=== PATIENT | female | born 1950 | race Caucasian/White ===

== ENCOUNTER 2024-06-14 13:10 | Inpatient (IN) ==
[2024-06-14 13:58] LABS: ABS Basophils 0.1 10^3/uL (0.0-0.1); ABS Lymphocytes 1.4 10^3/uL (1.0-4.8); ABS Monocytes 0.7 10^3/uL (0.0-0.9); ABS Neutrophils 9.4 10^3/uL (1.5-7.6); Eosinophil % 0.2 %; Hematocrit 39.2 % (35-45); Hemoglobin 13.4 g/dL (11.5-14.3); Lymphocyte % 11.9 %; Mean Corpuscular Hemoglobin 34.2 pg (27-33); Mean Corpuscular Hgb Conc 34.1 g/dL (31-36); Mean Corpuscular Volume 100.4 fL (80-97); Mean Platelet Volume 8.4 fL (7.5-11.2); Platelet Count 338 10^3/uL (150-450); Red Cell Distribution Width 14.7 % (12-17); White Blood Count 11.5 10^3/uL (3.8-11.8)
[2024-06-14] MEDS: NS 0.9% 1000 ml BAG 1,000 ML IV ONE ×2 (14:05→16:06)
[2024-06-14 14:07] LABS: Activated Partial Thrombo Time 27.2 seconds (26.0-38.0); INR 1.08 (0.83-1.13)
[2024-06-14 14:54] LABS: Albumin 4.2 g/dL (3.2-5.2); Albumin/Globulin Ratio 1.3 (1-3); Creatinine, Serum 1.76 mg/dL (0.51-0.95); Direct Bilirubin 0.1 mg/dL (0.03-0.18); Globulin 3.3 g/dL (2-4); HDL Cholesterol 64.7 mg/dL; Indirect Bilirubin 0.6 mg/dL (0.3-1.0); Potassium 4.1 mmol/L (3.5-5.0); Total Bilirubin 0.7 mg/dL (0.2-1.0); Total Protein 7.5 g/dL (6.4-8.9); eGFR CKD-EPI 30.6 (>60)
[2024-06-14 15:36] LABS: High Sensitivity Troponin 1 Hr 8 pg/mL (<15)
[2024-06-14 18:17] LABS: Urine Appearance Clear; Urine Bilirubin Negative (Negative); Urine Blood Negative (Negative); Urine Color Light-Yellow; Urine Glucose Negative (Negative); Urine Ketones Negative (Negative); Urine Nitrite Negative (Negative); Urine Protein Trace (Negative); Urine Specific Gravity 1.015 (1.002-1.030); Urine Urobilinogen Negative (Negative)
[2024-06-14 18:20] LABS: Urine Bacteria Absent /HPF (Absent); Urine Red Blood Cell 1+(3-5/hpf) /HPF (0-Trace); Urine Squamous Epithelial Cell Present /HPF (Absent); Urine White Blood Cell 1+(6-10/hpf) /HPF (0-Trace)
[2024-06-14 18:42] LABS: C Reactive Protein 152.52 mg/L (<8.01)
[2024-06-14] MEDS: NS 0.9% 1000 ml BAG 1,000 ML IV SCH (19:31)
[2024-06-14 19:43] LABS: Erythrocyte Sed Rate 52 mm/Hr (0-29)
[2024-06-14] MEDS: Gadoteridol (CONTRAST) 279.3 MG/ML 10 ML IV ONE (21:24)
[2024-06-14] MEDS: Morphine 4 MG/ML VIAL (1 ml) IV ONE (22:16)
[2024-06-14] MEDS: Vancomycin 1,250 MG in NS 0.9% 250 ml 250 ML IVPB ONE (23:55)
[2024-06-14] MEDS: Cefepime 2 GM in Dextrose 2 GM/50 ML BAG IV ONE (23:55)
[2024-06-15] MEDS ORDERED: HYDROmorphone 1 MG/1 ML SYRINGE IV SLOW PU PRN (00:46)
[2024-06-15] MEDS ORDERED: Ondansetron 4 mg VIAL 2 MG/ML 2 ml VIAL IV PRN (00:47)
[2024-06-15] MEDS ORDERED: Vancomycin per Pharmacy 1 EA NOTE FOLLOW UP SCH (01:00)
[2024-06-15] MEDS ORDERED: LORazepam 2 mg VIAL 1 ml IV PUSH SCH (02:00)
[2024-06-15] MEDS: Multivitamins/Minerals TAB PO SCH ×2 (03:26→08:39)
[2024-06-15] MEDS: Enoxaparin 40 MG/0.4 ML SYR SUBCUT SCH (06:11)
[2024-06-15 06:49] LABS: Anion Gap 8 mmol/L (2-16); Blood Urea Nitrogen 27 mg/dL (6-24); CO2 Carbon Dioxide 28 mmol/L (22-32); Calcium 8.6 mg/dL (8.6-10.3); Chloride 104 mmol/L (101-111); Creatinine, Serum 0.91 mg/dL (0.51-0.95); Glucose 82 mg/dL (70-100); Potassium 3.9 mmol/L (3.5-5.0); Sodium 140 mmol/L (135-145); eGFR CKD-EPI 67.4 (>60)
[2024-06-15 07:52] LABS: Alcohol, S < 13 mg/dL (<13)
[2024-06-15 08:09] LABS: TSH Ultra Thyroid Stim Horm 4.13 mcIU/mL (0.34-5.60)
[2024-06-15 08:18] LABS: Folate 6.36 ng/mL (5.90-24.80)
[2024-06-15 08:20] LABS: Vitamin B12 457 pg/mL (180-914)
[2024-06-15] MEDS: Cefepime 2 GM in Dextrose 2 GM/50 ML BAG IV SCH (11:04)
[2024-06-15 11:20] LABS: ABS Eosinophils 0.1 10^3/uL (0.0-0.5); ABS Lymphocytes 1.5 10^3/uL (1.0-4.8); ABS Monocytes 0.7 10^3/uL (0.0-0.9); ABS Neutrophils 5.8 10^3/uL (1.5-7.6); Hematocrit 34.8 % (35-45); Hemoglobin 11.5 g/dL (11.5-14.3); Lymphocyte % 18.5 %; Mean Corpuscular Hemoglobin 33.2 pg (27-33); Mean Corpuscular Hgb Conc 32.9 g/dL (31-36); Mean Corpuscular Volume 100.7 fL (80-97); Mean Platelet Volume 8.4 fL (7.5-11.2); Platelet Count 287 10^3/uL (150-450); Red Blood Count 3.45 10^6/uL (3.63-4.92); Red Cell Distribution Width 14.6 % (12-17); White Blood Count 8.2 10^3/uL (3.8-11.8)
[2024-06-15] MEDS ORDERED: Magnesium Hydroxide LIQ 30 ML UDC PO PRN (12:16)
[2024-06-15] MEDS ORDERED: Polyethylene Glycol 3350 17 GM PACKET PO PRN (12:16)
[2024-06-15] MEDS ORDERED: Senna TAB 8.6 mg TAB PO PRN (12:16)
[2024-06-15] MEDS: Magnesium Hydroxide LIQ 30 ML UDC PO SCH (14:10)
[2024-06-15] MEDS ORDERED: Nicotine PATCH 14 MG/24 HR PATCH TRANSDERM PRN (20:57)
[2024-06-15] MEDS ORDERED: Nicotine GUM 2MG FRUIT FLAVOR PO PRN (21:03)
[2024-06-15] MEDS: Vancomycin 1000 MG in NS 0.9% 250 ML IVPB SCH (21:50)
[2024-06-15] MEDS ORDERED: Vancomycin 1000 MG in NS 0.9% 250 ML IVPB SCH (22:00)
[2024-06-16] MEDS: Cefepime 2 GM in Dextrose 2 GM/50 ML BAG IV SCH (00:17)
[2024-06-16 06:00] LABS: Hematocrit 34.6 % (35-45); Hemoglobin 11.5 g/dL (11.5-14.3); Mean Corpuscular Hemoglobin 33.3 pg (27-33); Mean Corpuscular Hgb Conc 33.1 g/dL (31-36); Mean Corpuscular Volume 100.5 fL (80-97); Mean Platelet Volume 8.6 fL (7.5-11.2); Platelet Count 311 10^3/uL (150-450); Red Blood Count 3.45 10^6/uL (3.63-4.92); Red Cell Distribution Width 14.3 % (12-17); White Blood Count 8.4 10^3/uL (3.8-11.8)
[2024-06-16 06:19] LABS: Creatinine, Serum 0.66 mg/dL (0.51-0.95); Potassium 4.1 mmol/L (3.5-5.0); eGFR CKD-EPI 93.7 (>60)
[2024-06-16] MEDS ORDERED: Vancomycin 1000 MG in NS 0.9% 250 ML IVPB SCH (13:30)
[2024-06-16] MEDS: Vancomycin 1000 MG in NS 0.9% 250 ML IVPB SCH (14:51)
[2024-06-17 06:16] LABS: ABS Basophils 0.1 10^3/uL (0.0-0.1); ABS Eosinophils 0.1 10^3/uL (0.0-0.5); ABS Lymphocytes 2.4 10^3/uL (1.0-4.8); ABS Neutrophils 5.1 10^3/uL (1.5-7.6); Eosinophil % 1.3 %; Hematocrit 33.7 % (35-45); Hemoglobin 11.5 g/dL (11.5-14.3); Lymphocyte % 27.1 %; Mean Corpuscular Hemoglobin 33.9 pg (27-33); Mean Corpuscular Volume 99.9 fL (80-97); Platelet Count 309 10^3/uL (150-450); Red Blood Count 3.37 10^6/uL (3.63-4.92); Red Cell Distribution Width 14.4 % (12-17); White Blood Count 8.7 10^3/uL (3.8-11.8)
[2024-06-17] MEDS: Vancomycin Trough Check NOTE FOLLOW UP ONE (13:38)
[2024-06-18 06:46] LABS: Creatinine, Serum 0.73 mg/dL (0.51-0.95); eGFR CKD-EPI 87.9 (>60)
[2024-06-19 06:32] LABS: Calcium 9.4 mg/dL (8.6-10.3); Creatinine, Serum 0.77 mg/dL (0.51-0.95); Potassium 4.8 mmol/L (3.5-5.0); eGFR CKD-EPI 82.4 (>60)
[2024-06-19] MEDS: Vancomycin 1,750 MG in NS 0.9% 500 ml BAG 500 ML IVPB SCH (09:16)
[2024-06-20 09:58] LABS: C Reactive Protein 20.76 mg/L (<8.01)
[2024-06-20] MEDS ORDERED: Vancomycin Trough Check NOTE FOLLOW UP ONE (11:00)
[2024-06-20 18:51] LABS: Creatinine, Serum 0.74 mg/dL (0.51-0.95); eGFR CKD-EPI 86.4 (>60)
[2024-06-21] MEDS: Vancomycin Random Level NOTE FOLLOW UP ONE (08:10)
[2024-06-21 09:48] VITALS: BP 135/76
== END 2024-06-21 11:15 | disposition home or self-care (01) | DRG 549 ==
LOC: EDHOLD 13:10 → ED 13:10 → SUATTDRO 06-15 00:40 → SSU 06-15 13:41 → SUATTDRO 06-15 14:22 → SSU 06-15 15:10 → MEDTELE 06-15 19:42
PROVIDERS: ADMIT Internal Medicine; ATTEND Student in an Organized Health Care Education/Training Program